=== PATIENT | female | born 2000 | race African-American/Black ===

== ENCOUNTER 2018-03-02 16:08 | Emergency (ER) | payer BC ==
--- NOTE | 2018-03-02 17:17 | ED ---
Palpitations / Dysrhythmia - HPI Summary HPI Summary: The pt is a 17 y/o female presenting to [facility] c/o palpitations since 2 days ago worsened today. The first episode was 2 days ago lasting steadily for 1 hour, and accompanied by SOB, and light-headedness. The second and third episodes were shorter lasting about 5 seconds. She denies LOC, MORSE, and vision changes. She denies any substance use and regular caffeine intake. She has not had similar sx before. - History of Current Complaint Chief Complaint: EDDysrhythmPalp Time Seen by Provider: 03/02/18 17:04 Hx Obtained From: Patient, Family/Collection Analyst - Friend Onset/Duration: Sudden Onset, Still Present Timing: Intermittent Episodes Lasting: - seconds to an hour Character: Pounding Associated Signs & Symptoms: Lightheadedness, Shortness of Breath - Allergy/Home Medications Allergies/Adverse Reactions: Allergies Allergy/AdvReac Type Severity Reaction Status Date / Time No Known Allergies Allergy Verified 03/02/18 17:17 Home Medications: Home Medications NK [No Home Medications Reported] 03/02/18 [History Confirmed 03/02/18] PMH/Surg Hx/FS Hx/Imm Hx Previously Healthy: Yes Endocrine/Hematology History: Denies: Hx Diabetes Cardiovascular History: Denies: Hx Hypertension History: Denies: Hx Kidney Infection Sensory History: Denies: Hx Deafness - Cancer History Cancer Type, Location and Year: None Infectious Disease History: No Infectious Disease History: Denies: Traveled Outside the [place] in Last 30 Days - Family History Known Family History: Positive: Diabetes - Grandmother Negative: Cardiac Disease, Hypertension - Social History Occupation: Student Lives: Dormitory/Roommates Alcohol Use: None Substance Use Type: Reports: None Hx Tobacco Use: No Review of Systems Constitutional: Other - Positive: Light-headedness Eyes: Negative - Vision changes Positive: Palpitations. Negative: Chest Pain Positive: Shortness Of Breath Negative: Headache All Other Systems Reviewed And Are Negative: Yes Physical Exam - Summary Physical Exam Summary: Appearance: Well-appearing, Well-nourished, lying in bed comfortably Skin: Warm, dry, no obvious rash Eyes: sclera anicteric, no conjunctival pallor ENT: mucous membranes moist, pharynx appears normal Neck: Supple, nontender Respiratory: Clear to auscultation, no signs of respiratory distress Cardiovascular: Normal S1, S2. No murmurs. Normal distal pulses in tibial and radial bilaterally. Abdomen: Soft, nontender, normal active bowel sounds present Musculoskeletal: Normal, Strength/ROM Intact Neurological: A&Ox3, awake and alert, mentation is normal, speech is fluent and appropriate Psychiatric: affect is normal, does not appear anxious or depressed Triage Information Reviewed: Yes Vital Signs On Initial Exam: Initial Vitals Temp Pulse Resp BP Pulse Ox 98.3 F 66 16 130/64 99 03/02/18 16:15 03/02/18 16:15 03/02/18 16:15 03/02/18 16:15 03/02/18 16:15 Vital Signs Reviewed: Yes Diagnostics - Vital Signs Vital Signs Temp Pulse Resp BP Pulse Ox 03/02/18 16:15 98.3 F 66 16 130/64 99 - Laboratory Result Diagrams: 03/02/18 17:21 03/02/18 17:21 Lab Statement: Any lab studies that have been ordered have been reviewed, and results considered in the medical decision making process. - EKG 16:45 Cardiac Rate: Bradycardia - [address] Segment: Normal Ectopy: None EKG Interpretation: Otherwise normal EKG Course/Dx - Course Course Of Treatment: A 17 year-old F presents to the ED with a CC of palpitations since 2 days ago worsened today. The first episode was 2 days ago lasting steadily for 1 hour and accompanied by SOB, and light-headedness. The second and third episodes were shorter lasting about 5 seconds. She denies LOC, MORSE, and vision changes. She denies any substance use and regular caffeine intake. She has not had similar sx before. A physical exam is unremarkable. An EKG reveals bradycardia but is otherwise normal. Patient will be discharged with a final Dx of heart palpitations and a referral to a lace inspector. Pt is agreeable with this plan. Allergies noted. - Diagnoses Provider Diagnoses: Heart palpitations Discharge - Sign-Out/Discharge Documenting (check all that apply): Patient Departure - DC - Discharge Plan Condition: Good Disposition: HOME Patient Education Materials: Heart Palpitations (ED) Referrals: Cindi Valdovinos MD [Medical Doctor] - 3 Days Additional Instructions: If these episodes continue to occur you should see a lace inspector, and he or she will probably order some type of ambulatory hearth rhythm monitoring test to try to secure a diagnosis. Right now I do not see or hear and "red flags" of a dangerous arrhythmia. If your episodes worsen, do not remit after an hour or so, or become associated with fainting or trouble breathing, you should come back to see us here. - Billing Disposition and Condition Condition: GOOD Disposition: Home - Attestation Statements Document Initiated by Charo: Yes Documenting Scribe: Delilah Uribe Provider For Whom Charo is Documenting (Include Credential): Dr. Erik Blakely MD Scribe Attestation: I, Delilah Uribe, scribed for Dr. Erik Blakely MD on 03/03/18 at 1501. Scribe Documentation Reviewed: Yes Provider Attestation: The documentation as recorded by the Delilah brown accurately reflects the service I personally performed and the decisions made by me, Dr. Erik Blakely MD
[2018-03-02 17:28] LABS: ABS Basophils 0.1 10^3/ul (0-0.2); ABS Eosinophils 0.1 10^3/ul (0-0.6); ABS Lymphocytes 2.3 10^3/ul (1.0-4.8); ABS Monocytes 0.5 10^3/ul (0-0.8); ABS Neutrophils 4.3 10^3/ul (1.5-7.7); ABS Nucleated RBC 0 10^3/ul; Eosinophil % 1.2 % (0-6); Hematocrit 37 % (35-47); Hemoglobin 12.2 g/dl (12.0-16.0); Lymphocyte % 32.2 % (25-47); Mean Corpuscular HGB Conc 33 g/dl (31-36); Mean Corpuscular Hemoglobin 28 pg (27-31); Mean Corpuscular Volume 86 fL (80-97); Mean Platelet Volume 8.3 um3 (7.4-10.4); Nucleated Red Blood Cells % 0; Platelet Count 325 10^3/ul (150-450); Red Blood Count 4.34 10^6/ul (4.00-5.40); Red Cell Distribution Width 13 % (10.5-15); White Blood Count 7.3 10^3/ul (3.5-10.8)
[2018-03-02 17:51] LABS: EGFR Non-African American 111.5 (>60)
[2018-03-02 18:45] VITALS: BP 101/67
== END 2018-03-02 18:44 | disposition home or self-care (01) ==
LOC: ED 16:08
DX: R00.2 Palpitations (principal); R42 Dizziness and giddiness; R06.02 Shortness of breath
CPT/HCPCS: 36415; 80048; 84702; 85025; 93005; 99282